=== PATIENT | female | born 1990 | race Caucasian/White ===

== ENCOUNTER 2016-08-18 02:35 | Emergency (ER) | payer SELFPAY ==
[2016-08-18 03:07] LABS: BASOPHILS 0.2 % (0.0-2.0); EOSINOPHILS 2.2 % (0-7); HEMATOCRIT 36.5 % (36.0-48.0); LYMPHOCYTES 29.8 % (15-50); MCH 31.1 pg (26.0-34.0); MCHC 32.9 g/dL (31.0-37.0); MCV 94.6 fL (80.0-100.0); MEAN PLATELET VOLUME 10.2 fL (7.4-10.4); NEUTROPHILS 62.8 % (40-80); PLATELET COUNT 186 10x3/uL (130-400); RBC 3.86 10x6/uL (4.00-5.40); WBC 4.6 10x3/uL (4.8-10.8)
[2016-08-18 03:26] LABS: ALBUMIN 3.3 g/dL (3.4-5.0); ALKALINE PHOSPHATASE 29 U/L (46-116); ALT (SGPT) 17 U/L (10-68); BILIRUBIN - TOTAL 0.41 mg/dL (0.2-1.3); CALC OSMOLALITY 288 mosm/kg (275-300); CALCIUM 7.7 mg/dL (8.5-10.1); CHLORIDE - SERUM 109 mmol/L (98-107); CREATININE - SERUM 0.7 mg/dL (0.6-1.3); GLUCOSE 92 mg/dL (74-106); POTASSIUM - SERUM 3.3 mmol/L (3.5-5.1); PROTEIN - SERUM 6.3 g/dL (6.4-8.2); SODIUM 145 mmol/L (136-145); UREA NITROGEN 13 mg/dL (7-18); eGFR NON AFRICAN AMERICAN > 90 mL/min (90-120)
[2016-08-18 03:31] LABS: MAGNESIUM - SERUM 2.2 mg/dL (1.8-2.4)
[2016-08-18 03:34] LABS: HCG - QUANTITATIVE (MATERNAL) 0 mIU/mL
== END 2016-08-18 05:45 | disposition home or self-care (01) ==
LOC: D.ER 02:35
PROVIDERS: Family Medicine
DX: F10.129 Alcohol abuse with intoxication, unspecified (principal); R11.2 Nausea with vomiting, unspecified

== ENCOUNTER 2017-01-03 18:42 | Emergency (ER) | payer SELFPAY ==
[2017-01-03 19:29] LABS: HCG URINE NEGATIVE (NEGATIVE)
== END 2017-01-03 20:30 | disposition home or self-care (01) ==
LOC: D.ER 18:42
PROVIDERS: Physician Assistant Medical
DX: Z03.89 Encounter for observation for other suspected diseases and conditions ruled out (principal)